=== PATIENT | male | born 1965 | race Caucasian/White ===

== ENCOUNTER 2017-05-23 07:58 | Emergency (ER) | payer SELFPAY ==
[~2017-05-23] VITALS: Ht 162.6 cm; Wt 68.0 kg
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
[2017-05-23] MEDS ORDERED: TDAP [DIPH/PERTUSSIS/TET] 0.5 ML VIAL IM ONE ×2 (08:13→08:30)
--- NOTE | 2017-05-23 08:22 | NUR ---
WOUND CARE RENDERED, TOLERATED WELL.
[2017-05-23 08:49] VITALS: BP 142/94
--- NOTE | 2017-05-23 08:57 | NUR ---
IV removed. Catheter intact and site benign. Pressure and 4x4 applied to site. No bleeding noted. Patient discharged to home in stable condition. Written and verbal after care instructions given. Patient verbalizes understanding of instruction.
== END 2017-05-23 08:50 | disposition home or self-care (01) ==
LOC: ER 08:02
DX: S80.812A Abrasion, left lower leg, initial encounter (principal); F17.210 Nicotine dependence, cigarettes, uncomplicated; Z88.0 Allergy status to penicillin; V03.19XA Pedestrian with other conveyance injured in collision with car, pick-up truck or van in traffic accident, initial encounter; Y93.89 Activity, other specified; Y92.413 State road as the place of occurrence of the external cause; Y99.8 Other external cause status
CPT/HCPCS: 90471; 90715; 99283; 99406; A4606; A6403; Z7610